=== PATIENT | female | born 1975 | race Caucasian/White ===

== ENCOUNTER 2017-06-15 20:36 | Emergency (ER) | payer MEDICAID ==
[~2017-06-15] VITALS: Ht 157.5 cm; Wt 66.0 kg
[2017-06-16 01:04] VITALS: BP 131/71
== END 2017-06-16 01:07 | disposition home or self-care (01) ==
LOC: ER 21:11
DX: J11.1 Influenza due to unidentified influenza virus with other respiratory manifestations (principal); E11.9 Type 2 diabetes mellitus without complications
CPT/HCPCS: 99283

== ENCOUNTER 2018-02-05 17:12 | Emergency (ER) | payer MEDICAID ==
[~2018-02-05] VITALS: Ht 162.6 cm; Wt 67.0 kg
[2018-02-05] MEDS ORDERED: INSULIN PUMP (17:21)
[2018-02-05 22:23] VITALS: BP 142/71
== END 2018-02-05 22:25 | disposition home or self-care (01) ==
LOC: ER 17:12
DX: H91.91 Unspecified hearing loss, right ear (principal); E11.9 Type 2 diabetes mellitus without complications; Z79.4 Long term (current) use of insulin
CPT/HCPCS: 81025; 99284

== ENCOUNTER 2022-01-01 13:21 | Emergency (ER) | payer MEDICAID ==
[~2022-01-01] VITALS: Ht 167.6 cm; Wt 75.0 kg
[~2022-01-01 13:21] MED LIST: INSULIN PUMP
[2022-01-01 14:53] LABS: BASOPHILS % 0.9 % (0.0-2.0); EOSINOPHILS % 3.1 % (0.0-5.0); HEMATOCRIT. 38.2 % (36.0-48.0); HEMOGLOBIN. 12.9 g/dL (12.0-16.0); LYMPHOCYTES % 22.7 % (20.0-50.0); MEAN CORPUSCULAR HEMOGLOBIN 30.8 pg (28.0-32.0); MEAN CORPUSCULAR VOLUME 91.4 fL (81.0-99.0); MEAN PLATELET VOLUME 9.6 fl (7.4-10.4); MONOCYTES % 7.8 % (2.0-8.0); NEUTROPHILS % 65.5 % (40.0-76.0); PLATELET 284 x1000/uL (130-400); RED BLOOD CELL COUNT 4.18 mill/uL (4.2-5.4); RED CELL DISTRIBUTION WIDTH 12.9 % (11.6-14.6)
[2022-01-01 14:57] LABS: CHLORIDE 101 mEq/L (98-107)
[2022-01-01 15:36] VITALS: BP 123/71
== END 2022-01-01 15:45 | disposition home or self-care (01) ==
LOC: ER 13:21
DX: Z00.00 Encounter for general adult medical examination without abnormal findings (principal); E11.65 Type 2 diabetes mellitus with hyperglycemia; I49.9 Cardiac arrhythmia, unspecified; I10 Essential (primary) hypertension; E78.00 Pure hypercholesterolemia, unspecified
CPT/HCPCS: 36415; 80053; 85025; 93005; 99284

== ENCOUNTER 2022-11-26 20:31 | Emergency (ER) | payer MEDICAID, OTHER ==
[~2022-11-26] VITALS: Ht 157.5 cm; Wt 65.0 kg
[2022-11-26 20:55] VITALS: O2SAT 97
[2022-11-26] MEDS ORDERED: LIDOCAINE HCL/PF 1% 10 MG/ML 5ML VIAL INFIL ONE (22:15)
[2022-11-26] MEDS ORDERED: IBUPROFEN 600MG TABLET PO ONE (22:15)
[2022-11-26] MEDS ORDERED: BACITRACIN ZINC OINT UDPKT TOP ONE (22:15)
[2022-11-26] MEDS ORDERED: TETANUS, DIPHTHERIA, PERTUSSIS VAC/PF 0.5ML (>10YR OLD) IM ONE (22:15)
[2022-11-26 22:39] VITALS: BP 132/61
[2022-11-26] MEDS ORDERED: IBUP-2029 PO (23:09)
[2022-11-26] MEDS ORDERED: AMOX1TAB16 PO (23:09)
[2022-11-26 23:24] VITALS: PULSE 78; RESP 18; TEMP 98.8
== END 2022-11-26 23:26 | disposition home or self-care (01) ==
LOC: ER 20:31
DX: S61.216A Laceration without foreign body of right little finger without damage to nail, initial encounter (principal); E11.9 Type 2 diabetes mellitus without complications; E78.00 Pure hypercholesterolemia, unspecified; I10 Essential (primary) hypertension; W54.0XXA Bitten by dog, initial encounter; Y93.89 Activity, other specified; Y92.89 Other specified places as the place of occurrence of the external cause; Y99.8 Other external cause status
CPT/HCPCS: 81025; 73140; 90715; 12001; 90471; 99283; J3490; Z7610 ×3